=== PATIENT | male | born 1950 | race Caucasian/White ===

== ENCOUNTER → 2017-03-18 12:57 | Outpatient (CLI) | payer MEDICARE ==
[2015-08-21 11:00] VITALS: BMI 39.6
[~2017-03-18 12:57] MED LIST: ADIPEX-P37.5 MG PO; AMBIEN10 MG PO; ANTIVERT12.5 MG PO; AUGMENTIN 875-11 TAB PO; BENZTROPINE MESY1 MG PO; BUSPAR5 MG PO; CELEXA40 MG PO; COREG12.5 MG PO; COUMADIN2.5 MG PO; CRESTOR10 MG PO; FAMVIR500 MG PO; FLINTSTONE1 TAB.CHEW PO; IBUPROFEN800 MG PO; INDERAL10 MG PO; IPRAT-ALBUT 0.5-3 ML INH; IPRAT-ALBUT 0.5-3 ML UPD; K-DUR20 MEQ PO; KEPPRA250 MG PO; LASIX40 MG PO; LEVAQUIN500 MG PO; LEVAQUIN750 MG PO; LISINOPRIL10 MG PO; MUCINEX DM ER1 EAC1 PO; NORVASC5 MG PO; OMEPRAZOLE40 MG PO; PREDNISONE10 MG PO; PREDNISONE20 MG PO; PRINIVIL20 MG PO; PROTONIX40 MG PO; RISPERDAL4 MG PO; TESSALON PERLE100 MG PO; ULTRAM50 MG PO; XARELTO15 MG PO
== END | disposition home or self-care (01) ==
LOC: D.RT 12:57
DX: J45.909 Unspecified asthma, uncomplicated (principal)